=== PATIENT | female | born 1970 ===

== ENCOUNTER 2017-04-13 04:39 | Emergency (ER) | payer SELFPAY ==
[2017-04-13 04:53] VITALS: RESP 20; O2SAT 100
[2017-04-13] MEDS ORDERED: Sodium Chloride 0.9% 1,000 ML IV ONE (05:04)
--- NOTE | 2017-04-13 05:06 | C.PDOC ---
History Of Present Illness 46 year old female presents to ED with complaints of abdominal pain associated with nausea. She reports pain started 20 minutes ago. She awoke to use the bathroom and urinate, but started having pain. She reports the pain is generalized cramping in nature. She denies any fever, diarrhea, constipation, sick contacts or recent travel. Time Seen by Provider: 04/13/17 04:57 Chief Complaint (Nursing): Abdominal Pain History Per: Patient History/Exam Limitations: no limitations Onset/Duration Of Symptoms: Mins Current Symptoms Are (Timing): Still Present Location Of Pain/Discomfort: Diffuse Radiation Of Pain To:: None Quality Of Discomfort: Unable To Describe Associated Symptoms: Nausea. denies: Fever, Diarrhea, Constipation Exacerbating Factors: None Alleviating Factors: None Recent travel outside of the [place]: No Abnormal Vaginal Bleeding: No Past Medical History Reviewed: Historical Data, Nursing Documentation, Vital Signs Vital Signs: Last Vital Signs Temp 97.9 F 04/13/17 04:49 Pulse 62 04/13/17 04:49 Resp 20 04/13/17 04:49 BP 129/77 04/13/17 04:49 Pulse Ox 100 04/13/17 05:27 - Medical History PMH: Diabetes Surgical History: Cholecystectomy Family History: States: Unknown Family Hx - Social History Hx Alcohol Use: Yes Hx Substance Use: No Review Of Systems Constitutional: Negative for: Fever, Chills Gastrointestinal: Positive for: Nausea, Abdominal Pain. Negative for: Diarrhea , Constipation Physical Exam - Physical Exam Appears: Non-toxic Skin: Normal Color, Warm, Dry Head: Atraumatic, Normacephalic Eye(s): bilateral: Normal Inspection, EOMI Oral Mucosa: Moist Neck: Normal ROM Chest: Symmetrical Cardiovascular: Rhythm Regular Respiratory: No Rales, No Rhonchi, No Wheezing Gastrointestinal/Abdominal: Bowel Sounds (active), Soft, Tenderness (Generalized ), No Mass, No Distention, No Guarding, No Rebound, No Hernia Back: Normal Inspection, No CVA Tenderness Extremity: Bilateral: Atraumatic, Normal Color And Temperature, Normal ROM Neurological/Psych: Oriented x3, Normal Speech, Other (No focal deficits) Gait: Steady ED Course And Treatment - Laboratory Results Result Diagrams: 04/13/17 05:10 04/13/17 05:10 O2 Sat by Pulse Oximetry: 100 (Room air) Pulse Ox Interpretation: Normal Medical Decision Making Medical Decision Making: Impression: abdominal pain Plan: * Labs * UA * IV NS, Pepcid, Toradol Progress: Labs reviewed and unremarkable. She was sleeping when reevaluated and states her pain feels the same and feels burning in her epigastric area. Will order GI cocktail. Explain lab results to patient. She has no fever, no signs of acute abdomen or surgical pathology. She was advised to take analgesics as needed and to follow up with PCP. Disposition Counseled Patient/Family Regarding: Studies Performed, Diagnosis, Need For Followup, Rx Given - Disposition [facility]Outside[email or web address] Disposition: HOME/ ROUTINE Disposition Time: 06:15 Condition: IMPROVED Additional Instructions: curt resultados de laboratorio y orina fueron normales tome medicamentos para el dolor cuando sea necesario realice un seguimiento con noel mdico para yadiel evaluacin posterior regreso al hospital por dolor compa u otra preocupacin Prescriptions: Atropine/Hyoscyamine [] 1 tab PO Q8 #15 tab Instructions: Acute Abdominal Pain (DC) Forms: Managed Objects (Albanian) Print Language: JAPANESE - POA Present On Arrival: None - Clinical Impression Clinical Impression: Abdominal pain - Scribe Statement The provider has reviewed the documentation as recorded by the Scribe Facundo Magallon All medical record entries made by the Scribe were at my direction and personally dictated by me. I have reviewed the chart and agree that the record accurately reflects my personal performance of the history, physical exam, medical decision making, and the department course for this patient. I have also personally directed, reviewed, and agree with the discharge instructions and disposition.
[2017-04-13 05:14] LABS: BASO # 0.1 K/uL (0.0-0.2); BASO % 1.3 % (0.0-2.0); EOS # 0.5 K/uL (0.0-0.7); EOS % 5.2 % (0.0-4.0); HEMATOCRIT 35.9 % (34.0-47.0); LYMPH # 3.5 K/uL (1.0-4.3); LYMPH % 40.2 % (20.0-40.0); MEAN CELL VOLUME 81.9 fL (81.0-99.0); MEAN CORPUSCULAR HEMOGLOBIN 28.4 pg (27.0-31.0); MEAN CORPUSCULAR HGB CONC 34.7 g/dL (33.0-37.0); MEAN PLATELET VOLUME 10.3 fL (7.2-11.7); MONO # 0.5 K/uL (0.0-0.8); MONO % 5.3 % (0.0-10.0); NRBC % 0.1 % (0.0-2.0); WHITE BLOOD COUNT 8.8 K/uL (4.8-10.8)
[2017-04-13] MEDS ORDERED: Sodium Chloride 0.9% 1,000 ML ONE (05:18)
[2017-04-13 05:26] LABS: URINE BILIRUBIN NEGATIVE (NEGATIVE); URINE BLOOD NEGATIVE (NEGATIVE); URINE COLOR Straw (YELLOW); URINE GLUCOSE (UA) NORMAL (Normal); URINE KETONE NEGATIVE (NEGATIVE); URINE LEUKOCYTE ESTERASE NEG Leu/uL (Negative); URINE PROTEIN NEGATIVE (NEGATIVE); URINE UROBILINOGEN NORMAL mg/dL (0.2-1.0); WBC URINE 1 /hpf (0-5)
[2017-04-13 05:29] LABS: CHLORIDE 100 mmol/L (98-107)
[2017-04-13 05:30] LABS: POTASSIUM 4.4 mmol/L (3.6-5.2); SODIUM 137 mmol/L (132-148)
[2017-04-13 05:32] LABS: ALB/GLOB RATIO 1.1 (1.0-2.1); ALKALINE PHOSPHATASE 60 U/L (38-126); AST/SGOT 16 U/L (14-36); BILIRUBIN,TOTAL 0.5 mg/dL (0.2-1.3); CARBON DIOXIDE 24 mmol/L (22-30); GFR AFRICAN-AMERICAN > 60; TOTAL PROTEIN 7.2 g/dL (6.3-8.3)
[2017-04-13 05:33] LABS: ALT/SGPT 29 U/L (9-52); BLOOD UREA NITROGEN 15 mg/dL (7-17); CALCIUM 9.2 mg/dl (8.6-10.4); GLUCOSE,RANDOM 175 mg/dL (65-105)
[2017-04-13] MEDS ORDERED: Aluminum Hydroxide/Magnesium Hydroxide Susp (30 mL) PO STA (05:58)
[2017-04-13] MEDS ORDERED: Belladonna-Phenobarbital PO STA (05:58)
[2017-04-13] MEDS ORDERED: Aluminum Hydroxide/Magnesium Hydroxide Susp (30 mL) ONE (06:02)
[2017-04-13] MEDS ORDERED: Belladonna-Phenobarbital ONE (06:02)
[2017-04-13 06:29] VITALS: BP 105/67; PULSE 87; TEMP 98.1
== END 2017-04-13 06:28 | disposition home or self-care (01) ==
LOC: C.ER 04:39
DX: R10.84 Generalized abdominal pain (principal)
CPT/HCPCS: 80053; 81001; 83690; 84703; 85025; 96361; 96374; 96375; 99284; J1885; J2405; J7040